=== PATIENT | female | born 1960 | race Caucasian/White ===

== ENCOUNTER 2017-01-08 11:36 | Inpatient (IN) | payer OTHER ==
[~2017-01-08] VITALS: Ht 175.3 cm; Wt 108.9 kg
[~2017-01-08 11:36] MED LIST: CLEOCIN HCL300 MG PO; LEVAQUIN750 MG PO
[2017-01-08 12:47] LABS: HEMOGLOBIN 11.3 gm/dl (12.3-15.3); RED BLOOD COUNT 3.88 M/UL (4.00-5.10); WHITE BLOOD COUNT 8.8 K/UL (4.5-11.0)
[2017-01-08 14:21] LABS: BUN/CREATININE RATIO 40 (0-10)
[2017-01-10 04:47] LABS: BUN/CREATININE RATIO 28 (0-10)
[2017-01-12 04:21] LABS: HEMOGLOBIN 9.6 gm/dl (12.3-15.3); RED BLOOD COUNT 3.31 M/UL (4.00-5.10); WHITE BLOOD COUNT 7.8 K/UL (4.5-11.0)
[2017-01-12 04:48] LABS: BUN/CREATININE RATIO 26 (0-10)
[2017-01-13 04:24] LABS: HEMOGLOBIN 10.3 gm/dl (12.3-15.3); RED BLOOD COUNT 3.55 M/UL (4.00-5.10); WHITE BLOOD COUNT 8.3 K/UL (4.5-11.0)
[2017-01-13 04:49] LABS: BUN/CREATININE RATIO 30 (0-10)
[2017-01-14 04:29] LABS: HEMOGLOBIN 9.7 gm/dl (12.3-15.3); RED BLOOD COUNT 3.31 M/UL (4.00-5.10); WHITE BLOOD COUNT 6.5 K/UL (4.5-11.0)
[2017-01-14 04:52] LABS: BUN/CREATININE RATIO 26 (0-10)
[2017-01-15 07:15] LABS: HEMOGLOBIN 9.4 gm/dl (12.3-15.3); RED BLOOD COUNT 3.29 M/UL (4.00-5.10)
[2017-01-15 07:49] LABS: BUN/CREATININE RATIO 26 (0-10)
[2017-01-16 05:07] LABS: HEMOGLOBIN 9.4 gm/dl (12.3-15.3); RED BLOOD COUNT 3.25 M/UL (4.00-5.10); WHITE BLOOD COUNT 7.4 K/UL (4.5-11.0)
[2017-01-16 05:50] LABS: BUN/CREATININE RATIO 30 (0-10)
[2017-01-17 05:29] LABS: HEMOGLOBIN 9.9 gm/dl (12.3-15.3); RED BLOOD COUNT 3.37 M/UL (4.00-5.10); WHITE BLOOD COUNT 8.8 K/UL (4.5-11.0)
[2017-01-17 05:55] LABS: BUN/CREATININE RATIO 30 (0-10)
[2017-01-19 05:04] LABS: HEMOGLOBIN 9.6 gm/dl (12.3-15.3); RED BLOOD COUNT 3.27 M/UL (4.00-5.10); WHITE BLOOD COUNT 7.1 K/UL (4.5-11.0)
[2017-01-19 05:23] LABS: BUN/CREATININE RATIO 34 (0-10)
[2017-01-22 06:49] LABS: HEMOGLOBIN 9.8 gm/dl (12.3-15.3); RED BLOOD COUNT 3.32 M/UL (4.00-5.10); WHITE BLOOD COUNT 7.9 K/UL (4.5-11.0)
[2017-01-22 07:13] LABS: BUN/CREATININE RATIO 28 (0-10)
[2017-01-27 07:35] LABS: HEMOGLOBIN 9.8 gm/dl (12.3-15.3); RED BLOOD COUNT 3.31 M/UL (4.00-5.10); WHITE BLOOD COUNT 7.6 K/UL (4.5-11.0)
[2017-01-27 07:53] LABS: BUN/CREATININE RATIO 33 (0-10)
[2017-01-29 05:45] LABS: BUN/CREATININE RATIO 28 (0-10)
[2017-01-30 05:56] LABS: HEMOGLOBIN 10.2 gm/dl (12.3-15.3); RED BLOOD COUNT 3.47 M/UL (4.00-5.10); WHITE BLOOD COUNT 6.4 K/UL (4.5-11.0)
[2017-01-30 06:19] LABS: BUN/CREATININE RATIO 36 (0-10)
[2017-01-31 06:44] LABS: BUN/CREATININE RATIO 34 (0-10)
[2017-01-31] MEDS ORDERED: JUVEN PACKET1 EACH PO (12:35)
[2017-01-31] MEDS ORDERED: WELLBUTRIN SR100 MG PO (12:36)
[2017-01-31] MEDS ORDERED: LEXAPRO TAB 1010 MG PO (12:37)
[2017-01-31] MEDS ORDERED: FERROUS SULFAT325 MG PO (12:38)
[2017-01-31] MEDS ORDERED: NOVOLOG FL100 UNIT/1 SQ (12:41)
[2017-01-31] MEDS ORDERED: LEVEMIR FL100 UNIT/1 SQ (12:43)
[2017-01-31] MEDS ORDERED: PERCOCET 5-3251 EACH PO (12:48)
[2017-01-31] MEDS ORDERED: INVANZ 1 GM VIAL1 GM IV (12:48)
[2017-01-31] MEDS ORDERED: CLONAZEPAM0.5 MG PO (12:49)
[2017-01-31] MEDS ORDERED: ZINC SULFATE220 MG PO (12:50)
[2017-01-31] MEDS ORDERED: TIZANIDINE HCL4 MG PO (12:51)
[2017-05-03] MEDS ORDERED: INVANZ 1 GM VIAL1 GM IM (16:02)
[2017-05-19] MEDS ORDERED: LEVAQUIN500 MG PO (12:54)
[2017-06-01] MEDS ORDERED: BACTROBAN CREAM15 GM EXT (01:12)
[2017-06-01] MEDS ORDERED: LANTUS SOL100 UNIT/1 SQ (01:16)
[2017-06-01] MEDS ORDERED: CLARITIN10 M2 PO (01:19)
[2017-06-01] MEDS ORDERED: PROZAC 20 MG CA20 MG PO (01:21)
[2017-06-01] MEDS ORDERED: PAMELOR 25 MG C25 MG PO (01:22)
[2017-06-01] MEDS ORDERED: VISTARIL 50 MG50 MG PO (01:22)
[2017-06-01] MEDS ORDERED: IBUPROFEN600 MG PO (01:23)
[2017-06-01] MEDS ORDERED: NEURONTIN 100100 MG PO (12:39)
[2017-06-01] MEDS ORDERED: ZYVOX 600 MG T600 MG PO (12:52)
[2017-06-01] MEDS ORDERED: INVANZ 1 GM VIAL1 GM IM (18:14)
== END 2017-01-31 18:20 | disposition home or self-care (01) | DRG 622 ==
LOC: ER1 11:36 → ZEROF 01-09 01:20 → MED SURG 4 01-09 01:20
PROVIDERS: Emergency Medicine; Family Medicine; Internal Medicine; Physician Assistant; Surgery; ADMIT Internal Medicine
PROC: 2W15X6Z Compression of Back using Pressure Dressing (ICD-10-PCS; 2017-01-12)
PROC: 0JBQ0ZZ Excision of Right Foot Subcutaneous Tissue and Fascia, Open Approach (ICD-10-PCS; principal; 2017-01-12 12:15)
PROC: 05HB33Z Insertion of Infusion Device into Right Basilic Vein, Percutaneous Approach (ICD-10-PCS; 2017-01-29)
PROC: B54MZZA Ultrasonography of Right Upper Extremity Veins, Guidance (ICD-10-PCS; 2017-01-29)
DX: E11.69 Type 2 diabetes mellitus with other specified complication (principal); L89.614 Pressure ulcer of right heel, stage 4; L89.154 Pressure ulcer of sacral region, stage 4; G82.20 Paraplegia, unspecified; F33.1 Major depressive disorder, recurrent, moderate; F11.20 Opioid dependence, uncomplicated; M86.671 Other chronic osteomyelitis, right ankle and foot; E83.42 Hypomagnesemia; E11.65 Type 2 diabetes mellitus with hyperglycemia; I95.9 Hypotension, unspecified; D50.9 Iron deficiency anemia, unspecified; G89.4 Chronic pain syndrome; R53.1 Weakness; M54.5 Low back pain; E78.5 Hyperlipidemia, unspecified; F41.9 Anxiety disorder, unspecified; Z88.5 Allergy status to narcotic agent; Z82.49 Family history of ischemic heart disease and other diseases of the circulatory system; Z82.61 Family history of arthritis; Z79.4 Long term (current) use of insulin; Z79.899 Other long term (current) drug therapy; R15.9 Full incontinence of feces; G90.4 Autonomic dysreflexia
CPT/HCPCS: 36415; 73630; 80048; 80053; 81001; 82272; 82607; 82728; 82962; 83036; 83540; 83550; 83605; 83735; 84439; 84443; 84466; 85025; 85027; 85045; 86140; 87040; 87045; 87046; 87070; 87086; 87205; 89055; 96374; 96375; 96376; 97110; 97535; 99284; A6243; J0696; J1100; J1335; J1650; J1756; J2060; J2270; J2310; J2405; J2710; J3010; J3370; J7030; J7040; J7050; J7070; J7120; Q0163

== ENCOUNTER 2017-02-06 12:48 | Inpatient (IN) | payer OTHER ==
[~2017-02-06] VITALS: Ht 175.3 cm; Wt 109.8 kg
[~2017-02-06 12:48] MED LIST changes: +CLONAZEPAM0.5 MG PO; +FERROUS SULFAT325 MG PO; +INVANZ 1 GM VIAL1 GM IV; +JUVEN PACKET1 EACH PO; +LEVEMIR FL100 UNIT/1 SQ; +LEXAPRO TAB 1010 MG PO; +NOVOLOG FL100 UNIT/1 SQ; +PERCOCET 5-3251 EACH PO; +TIZANIDINE HCL4 MG PO; +WELLBUTRIN SR100 MG PO; +ZINC SULFATE220 MG PO
[2017-02-06 15:15] LABS: HEMOGLOBIN 12.2 gm/dl (12.3-15.3); RED BLOOD COUNT 4.05 M/UL (4.00-5.10); WHITE BLOOD COUNT 10.6 K/UL (4.5-11.0)
[2017-02-06 15:35] LABS: BUN/CREATININE RATIO 30 (0-10)
[2017-02-08 09:23] LABS: HEMOGLOBIN 10.6 gm/dl (12.3-15.3)
[2017-02-08 09:28] LABS: RED BLOOD COUNT 3.63 M/UL (4.00-5.10); WHITE BLOOD COUNT 4.4 K/UL (4.5-11.0)
[2017-02-08 09:36] LABS: BUN/CREATININE RATIO 34 (0-10)
[2017-02-09 06:18] LABS: HEMOGLOBIN 10.9 gm/dl (12.3-15.3); RED BLOOD COUNT 3.69 M/UL (4.00-5.10)
[2017-02-09 06:24] LABS: WHITE BLOOD COUNT 5.9 K/UL (4.5-11.0)
[2017-02-09 06:36] LABS: BUN/CREATININE RATIO 31 (0-10)
[2017-05-03] MEDS ORDERED: INVANZ 1 GM VIAL1 GM IM (16:02)
[2017-05-19] MEDS ORDERED: LEVAQUIN500 MG PO (12:54)
[2017-06-01] MEDS ORDERED: BACTROBAN CREAM15 GM EXT (01:12)
[2017-06-01] MEDS ORDERED: LANTUS SOL100 UNIT/1 SQ (01:16)
[2017-06-01] MEDS ORDERED: CLARITIN10 M2 PO (01:19)
[2017-06-01] MEDS ORDERED: PROZAC 20 MG CA20 MG PO (01:21)
[2017-06-01] MEDS ORDERED: VISTARIL 50 MG50 MG PO (01:22)
[2017-06-01] MEDS ORDERED: PAMELOR 25 MG C25 MG PO (01:22)
[2017-06-01] MEDS ORDERED: IBUPROFEN600 MG PO (01:23)
[2017-06-01] MEDS ORDERED: NEURONTIN 100100 MG PO (12:39)
[2017-06-01] MEDS ORDERED: ZYVOX 600 MG T600 MG PO (12:52)
[2017-06-01] MEDS ORDERED: INVANZ 1 GM VIAL1 GM IM (18:14)
== END 2017-02-17 18:05 | DRG 592 ==
LOC: ER1 12:48 → M/S 18:45 → ZEROF 18:45 → M/S 23:36
PROVIDERS: Family Medicine; Physician Assistant; ADMIT Internal Medicine
DX: L89.514 Pressure ulcer of right ankle, stage 4 (principal); M86.8X7 Other osteomyelitis, ankle and foot; G82.20 Paraplegia, unspecified; L89.153 Pressure ulcer of sacral region, stage 3; E11.69 Type 2 diabetes mellitus with other specified complication; E11.65 Type 2 diabetes mellitus with hyperglycemia; D50.9 Iron deficiency anemia, unspecified; S14.106S Unspecified injury at C6 level of cervical spinal cord, sequela; S12.500S Unspecified displaced fracture of sixth cervical vertebra, sequela; I10 Essential (primary) hypertension; E78.5 Hyperlipidemia, unspecified; E83.42 Hypomagnesemia; V89.2XXS Person injured in unspecified motor-vehicle accident, traffic, sequela; G89.4 Chronic pain syndrome; M24.50 Contracture, unspecified joint; E66.01 Morbid (severe) obesity due to excess calories; R68.0 Hypothermia, not associated with low environmental temperature; L84 Corns and callosities; F41.9 Anxiety disorder, unspecified; F17.200 Nicotine dependence, unspecified, uncomplicated; Z91.19 Patient's noncompliance with other medical treatment and regimen; Z91.11 Patient's noncompliance with dietary regimen; Z68.35 Body mass index [BMI] 35.0-35.9, adult; Z79.4 Long term (current) use of insulin; Z79.891 Long term (current) use of opiate analgesic; Z79.899 Other long term (current) drug therapy; Z88.5 Allergy status to narcotic agent; Z88.0 Allergy status to penicillin; Z98.890 Other specified postprocedural states; Z82.49 Family history of ischemic heart disease and other diseases of the circulatory system; Z82.69 Family history of other diseases of the musculoskeletal system and connective tissue
CPT/HCPCS: 36415; 80048; 80053; 82962; 83735; 85025; 85027; 86140; 87040; 99284; J1335; J1650; J1817; J7050

== ENCOUNTER 2017-04-04 17:28 | Observation (INO) | payer OTHER ==
[~2017-04-04] VITALS: Ht 175.3 cm; Wt 112.7 kg
[2017-04-04 19:04] LABS: HEMOGLOBIN 11.4 gm/dl (12.3-15.3); RED BLOOD COUNT 3.89 M/UL (4.00-5.10); WHITE BLOOD COUNT 6.4 K/UL (4.5-11.0)
[2017-04-04 19:23] LABS: BUN/CREATININE RATIO 33 (0-10)
[2017-04-05] MEDS ORDERED: PERCOCET 10-321 EACH PO (01:49)
[2017-04-05] MEDS ORDERED: DURAGESIC 25 MCG1 EA TOP (01:52)
[2017-04-05] MEDS ORDERED: NORTRIPTYLINE H25 MG PO (01:53)
[2017-04-05] MEDS ORDERED: SENNA LAX8.6 MG PO (01:55)
[2017-04-05] MEDS ORDERED: MONTELUKAST SOD10 MG PO (01:55)
[2017-04-05] MEDS ORDERED: KENALOG CR 0.0215 GM TOP (01:55)
[2017-04-05] MEDS ORDERED: BACTROBAN OINT22 GM TOP (02:04)
[2017-04-05 05:58] LABS: HEMOGLOBIN 12.3 gm/dl (12.3-15.3); RED BLOOD COUNT 4.23 M/UL (4.00-5.10); WHITE BLOOD COUNT 6.5 K/UL (4.5-11.0)
[2017-04-05 06:19] LABS: BUN/CREATININE RATIO 22 (0-10)
[2017-04-06] MEDS ORDERED: ASPIRIN81 MG PO (16:08)
[2017-04-06] MEDS ORDERED: CEFUROXIME250 MG PO (16:09)
[2017-05-03] MEDS ORDERED: INVANZ 1 GM VIAL1 GM IM (16:02)
[2017-05-19] MEDS ORDERED: LEVAQUIN500 MG PO (12:54)
[2017-06-01] MEDS ORDERED: BACTROBAN CREAM15 GM EXT (01:12)
[2017-06-01] MEDS ORDERED: LANTUS SOL100 UNIT/1 SQ (01:16)
[2017-06-01] MEDS ORDERED: CLARITIN10 M2 PO (01:19)
[2017-06-01] MEDS ORDERED: PROZAC 20 MG CA20 MG PO (01:21)
[2017-06-01] MEDS ORDERED: VISTARIL 50 MG50 MG PO (01:22)
[2017-06-01] MEDS ORDERED: PAMELOR 25 MG C25 MG PO (01:22)
[2017-06-01] MEDS ORDERED: IBUPROFEN600 MG PO (01:23)
[2017-06-01] MEDS ORDERED: NEURONTIN 100100 MG PO (12:39)
[2017-06-01] MEDS ORDERED: ZYVOX 600 MG T600 MG PO (12:52)
[2017-06-01] MEDS ORDERED: INVANZ 1 GM VIAL1 GM IM (18:14)
== END 2017-04-06 18:20 | disposition home or self-care (01) ==
LOC: ER1 17:28 → ZEROF 19:52 → M/S 19:52
PROVIDERS: Emergency Medicine; ADMIT Internal Medicine
DX: G93.41 Metabolic encephalopathy (principal); N30.00 Acute cystitis without hematuria; B96.4 Proteus (mirabilis) (morganii) as the cause of diseases classified elsewhere; G82.20 Paraplegia, unspecified; E11.9 Type 2 diabetes mellitus without complications; I10 Essential (primary) hypertension; E78.5 Hyperlipidemia, unspecified; L98.429 Non-pressure chronic ulcer of back with unspecified severity; Z79.82 Long term (current) use of aspirin; Z79.891 Long term (current) use of opiate analgesic; Z79.899 Other long term (current) drug therapy; Z88.5 Allergy status to narcotic agent
CPT/HCPCS: 36415; 71010; 80048; 80053; 80307; 81001; 82550; 82553; 82962; 83605; 84484; 85025; 85027; 87040; 87077; 87086; 87186; 93005; 96365; 96372; 96375; 99285; G0378; J0360; J0696; J1650; J2310; J7030; J7050

== ENCOUNTER 2017-04-08 12:04 | Emergency (ER) | payer OTHER ==
[~2017-04-08 12:04] MED LIST changes: +ASPIRIN81 MG PO; +BACTROBAN OINT22 GM TOP; +CEFUROXIME250 MG PO; +DURAGESIC 25 MCG1 EA TOP; +KENALOG CR 0.0215 GM TOP; +MONTELUKAST SOD10 MG PO; +NORTRIPTYLINE H25 MG PO; +PERCOCET 10-321 EACH PO; +SENNA LAX8.6 MG PO
[2017-05-03] MEDS ORDERED: INVANZ 1 GM VIAL1 GM IM (16:02)
[2017-05-19] MEDS ORDERED: LEVAQUIN500 MG PO (12:54)
[2017-06-01] MEDS ORDERED: BACTROBAN CREAM15 GM EXT (01:12)
[2017-06-01] MEDS ORDERED: LANTUS SOL100 UNIT/1 SQ (01:16)
[2017-06-01] MEDS ORDERED: CLARITIN10 M2 PO (01:19)
[2017-06-01] MEDS ORDERED: PROZAC 20 MG CA20 MG PO (01:21)
[2017-06-01] MEDS ORDERED: PAMELOR 25 MG C25 MG PO (01:22)
[2017-06-01] MEDS ORDERED: VISTARIL 50 MG50 MG PO (01:22)
[2017-06-01] MEDS ORDERED: IBUPROFEN600 MG PO (01:23)
[2017-06-01] MEDS ORDERED: NEURONTIN 100100 MG PO (12:39)
[2017-06-01] MEDS ORDERED: ZYVOX 600 MG T600 MG PO (12:52)
[2017-06-01] MEDS ORDERED: INVANZ 1 GM VIAL1 GM IM (18:14)
== END 2017-04-08 13:35 | disposition home or self-care (01) ==
LOC: ER1 12:04
DX: T83.021A Displacement of indwelling urethral catheter, initial encounter (principal); G82.20 Paraplegia, unspecified; E11.9 Type 2 diabetes mellitus without complications; Z88.0 Allergy status to penicillin; Z88.5 Allergy status to narcotic agent; X58.XXXA Exposure to other specified factors, initial encounter
CPT/HCPCS: 51702; 99283

== ENCOUNTER → 2017-05-04 | Outpatient (CLI) | payer OTHER ==
[~2017-05-04] VITALS: Ht 175.3 cm; Wt 112.5 kg
[~2017-05-04] MED LIST changes: +BACTROBAN CREAM15 GM EXT; +CLARITIN10 M2 PO; +IBUPROFEN600 MG PO; +INVANZ 1 GM VIAL1 GM IM; +LANTUS SOL100 UNIT/1 SQ; +LEVAQUIN500 MG PO; +NEURONTIN 100100 MG PO; +PAMELOR 25 MG C25 MG PO; +PROZAC 20 MG CA20 MG PO; +VISTARIL 50 MG50 MG PO; +ZYVOX 600 MG T600 MG PO
== END ==
LOC: OPSV 14:35
DX: N30.00 Acute cystitis without hematuria (principal); B96.20 Unspecified Escherichia coli [E. coli] as the cause of diseases classified elsewhere
CPT/HCPCS: 96372; J1335

== ENCOUNTER → 2017-05-06 | Outpatient (CLI) | payer OTHER ==
[~2017-05-06] VITALS: Ht 175.3 cm; Wt 112.5 kg
== END ==
LOC: OPSV 05-05 14:00
DX: N30.90 Cystitis, unspecified without hematuria (principal)
CPT/HCPCS: 96372; J1335

== ENCOUNTER 2021-03-05 13:34 | Emergency (ER) | payer OTHER ==
[~2021-03-05 13:34] MED LIST changes: +ADMELOG SO100 UNIT/1 SC; +ALBUTEROL1.25 MG/3 INH; +ALEVE220 MG PO; +APIDRA SOL100 UNIT/1 SQ; +ASPIR 8181 MG PO; +ASPIR-LOW81 MG PO; +ATIVAN 1MG TABLE1 MG PO; +ATIVAN1 MG PO; +BACITRACIN OINT30 GM TOP; +BACTRIM DS TAB1 EACH PO; +BASAGLAR K100 UNIT/1 SQ; +BASAGLAR SQ; +BENADRYL 50MG C50 MG PO; +CEFDINIR300 MG PO; +CEFPODOXIME PR200 MG PO; +CEFUROXIME500 MG PO; +CHRONULAC20 GM/30 M PO; +CIPRO250 MG PO; +CIPRO500 MG PO; +COREG 12.5MG12.5 MG PO; +DIFLUCAN150 MG PO; +DIFLUCAN200 MG PO; +DOCUSATE SODIU100 MG PO; +DOXYCYCLINE HY100 MG PO; +ENULOSE10 GM/15 M PO; +FENTANYL TOP; +FLONASE 0.05% N16 GM; +FUROSEMIDE40 MG PO; +GABAPENTIN300 MG PO; +GAVILAX8.5 GM PO; +GLUCOPHAGE1000 MG PO; +IPRAT-ALBUT 0.5-3 ML NEB; +KEFLEX500 MG PO; +KEPPRA 500 MG500 MG PO; +KLONOPIN1 MG PO; +KLOR-CON M2020 MEQ PO; +LANTUS INS100 UTS/M1 SC; -LANTUS SOL100 UNIT/1 SQ; +LANTUS100 UNIT/1 SC; +LANTUS100 UNIT/1 SQ; +LASIX20 MG PO; +LEXAPRO10 MG PO; +LINZESS145 MCG PO; +LIORESAL TAB 1010 MG PO; +LIPITOR TAB 1010 MG PO; +LODINE CAP 300300 MG PO; +LORAZEPAM0.5 MG PO; +LYRICA100 MG PO; +LYRICA75 MG PO; +MACROBID 100 M100 MG PO; +MAGNESIUM400 M2 PO; +METOPROLOL TART25 MG PO; +MIRALAX17 GM PO; +MYCOSTATIN POWD15 GM TOP; +NEURONTIN 300300 MG PO; +NEURONTIN 400400 MG PO; +NEURONTIN800 MG PO; +NORCO 7.5-3251 EACH PO; +NOVOLOG 10100 UNITS/ INJ; +OMNICEF 300 MG300 MG PO; +ONDANSETRON ODT4 MG PO; +OXYCODONE HCL10 MG PO; +OXYCONTIN10 MG PO; +PAIN RELIEVER650 MG PO; +PAXIL40 MG PO; -PERCOCET 10-321 EACH PO; +PHENERGAN 12.12.5 M1 PO; +PROCTOFOAM-HC 110 G1 PR; +PROTONIX40 MG PO; +PROZAC20 MG PO; +SANTYL OINT 3030 GM TP; +SENNA8.6 MG PO; +SULFAMETHOXAZO1 EACH PO; +THERAHONEY GEL; +TOPIRAMATE25 MG PO; +UREX1 GM GT; +UREX1 GM PO; +VALIUM 2 MG TAB2 MG PO; +VENTOLIN HFA 66.7 GM INH; +VITAMIN C500 M1 PO; +VITAMIN D250000 UNIT PO; +WELLBUTRIN SR150 M1 PO; +WELLBUTRIN XL150 MG PO; +ZANAFLEX 4 MG TA4 MG PO; +ZANAFLEX4 MG PO; +ZANTAC 150 MG150 MG PO; +ZITHROMAX250 MG PO; +ZOFRAN ODT 4 MG4 MG PO; +ZOFRAN ODT 4 MG4 MG SL; +ZOFRAN4 MG PO; +ZOLOFT50 MG PO; +ZYVOX600 MG PO; +[UNRECOGNIZED DRUG - REMARK] INH
[2021-03-05 15:01] LABS: BUN/CREATININE RATIO 26 (0-10)
[2021-03-05 15:04] LABS: RED BLOOD COUNT 4.86 M/UL (4.00-5.10); WHITE BLOOD COUNT 9.3 K/UL (4.5-11.0)
[2021-03-05] MEDS ORDERED: DIFLUCAN150 MG PO (18:34)
[2021-03-05] MEDS ORDERED: ASCORBIC ACID500 MG PO (18:34)
== END 2021-03-05 20:09 | disposition home or self-care (01) ==
LOC: ER1 13:34
PROVIDERS: Family Medicine
DX: R11.2 Nausea with vomiting, unspecified (principal); R19.7 Diarrhea, unspecified
CPT/HCPCS: 80053; 81001; 83690; 85025; 93005; 96374; 99285; J2550; J7030; Q9967

== ENCOUNTER 2021-03-12 17:10 | Inpatient (IN) | payer OTHER ==
[~2021-03-12] VITALS: Ht 175.3 cm; Wt 104.2 kg
[~2021-03-12 17:10] MED LIST changes: +ASCORBIC ACID500 MG PO
[2021-03-12 18:52] LABS: HEMOGLOBIN 13.9 gm/dl (12.3-15.3); RED BLOOD COUNT 4.61 M/UL (4.00-5.10); WHITE BLOOD COUNT 9.3 K/UL (4.5-11.0)
[2021-03-12 19:15] LABS: BUN/CREATININE RATIO 31 (0-10)
[2021-03-13] MEDS ORDERED: LASIX20 MG PO (00:01)
[2021-03-13 03:17] LABS: HEMOGLOBIN 13.1 gm/dl (12.3-15.3); RED BLOOD COUNT 4.36 M/UL (4.00-5.10); WHITE BLOOD COUNT 7.5 K/UL (4.5-11.0)
[2021-03-13 03:49] LABS: BUN/CREATININE RATIO 31 (0-10)
[2021-03-13] MEDS ORDERED: PAXIL40 MG PO (10:08)
[2021-03-13] MEDS ORDERED: MACROBID 100 M100 MG PO (10:09)
[2021-03-13] MEDS ORDERED: CONSTULOSE10 GM/15 M PO (10:10)
[2021-03-14] MEDS ORDERED: MACROBID 100 M100 MG PO (10:39)
== END 2021-03-14 14:47 | disposition home or self-care (01) | DRG 917 ==
LOC: ER1 17:10 → CDU 21:15 → PROG CARE 21:15 → M/S 03-14 04:07
PROVIDERS: Emergency Medicine; Internal Medicine; ADMIT Internal Medicine
PROC: 0BH17EZ Insertion of Endotracheal Airway into Trachea, Via Natural or Artificial Opening (ICD-10-PCS; 2021-03-12)
PROC: 5A1935Z Respiratory Ventilation, Less than 24 Consecutive Hours (ICD-10-PCS; 2021-03-12)
PROC: B24BZZ4 Ultrasonography of Heart with Aorta, Transesophageal (ICD-10-PCS; principal; 2021-03-13)
DX: T42.4X2A Poisoning by benzodiazepines, intentional self-harm, initial encounter (principal); L89.153 Pressure ulcer of sacral region, stage 3; J96.01 Acute respiratory failure with hypoxia; G82.20 Paraplegia, unspecified; I50.32 Chronic diastolic (congestive) heart failure; N30.00 Acute cystitis without hematuria; Z20.822 Contact with and (suspected) exposure to COVID-19; Z66 Do not resuscitate; L89.322 Pressure ulcer of left buttock, stage 2; F41.9 Anxiety disorder, unspecified; E11.65 Type 2 diabetes mellitus with hyperglycemia; F41.0 Panic disorder [episodic paroxysmal anxiety]; E78.5 Hyperlipidemia, unspecified; J30.9 Allergic rhinitis, unspecified; I10 Essential (primary) hypertension; R53.81 Other malaise; N31.9 Neuromuscular dysfunction of bladder, unspecified; L89.610 Pressure ulcer of right heel, unstageable; Z87.440 Personal history of urinary (tract) infections; Z88.6 Allergy status to analgesic agent; Z88.1 Allergy status to other antibiotic agents; Z88.0 Allergy status to penicillin; Z88.8 Allergy status to other drugs, medicaments and biological substances; Z82.61 Family history of arthritis; Z82.49 Family history of ischemic heart disease and other diseases of the circulatory system; Z74.01 Bed confinement status; Y92.009 Unspecified place in unspecified non-institutional (private) residence as the place of occurrence of the external cause
CPT/HCPCS: ECHO; 36415; 36600; 70450; 71045; 80053; 80307; 81001; 82550; 82553; 82803; 82962; 83605; 83735; 83874; 83880; 84484; 85025; 85610; 85730; 87040; 87086; 93005; 93306; 94002; 96374; 99285; G0480; J0692; J1650; J2250; U0002

== ENCOUNTER 2021-06-11 22:59 | Inpatient (IN) | payer OTHER ==
[~2021-06-11] VITALS: Ht 167.6 cm; Wt 97.5 kg
[~2021-06-11 22:59] MED LIST changes: -ADMELOG SO100 UNIT/1 SC; +CONSTULOSE10 GM/15 M PO; -GLUCOPHAGE1000 MG PO; -MONTELUKAST SOD10 MG PO; -PHENERGAN 12.12.5 M1 PO; -ZANAFLEX4 MG PO
[2021-06-11 23:53] LABS: HEMOGLOBIN 13.8 gm/dl (12.3-15.3); RED BLOOD COUNT 4.61 M/UL (4.00-5.10)
[2021-06-12] MEDS ORDERED: MONTELUKAST SOD10 MG PO (01:55)
[2021-06-12] MEDS ORDERED: ALEVE220 MG PO (09:50)
[2021-06-12] MEDS ORDERED: ADMELOG SO100 UNIT/1 SQ (12:37)
[2021-06-12] MEDS ORDERED: OXYCODONE HCL10 MG PO (14:06)
[2021-06-12] MEDS ORDERED: ZANAFLEX4 MG PO (16:06)
[2021-06-12] MEDS ORDERED: CLARITIN10 MG PO (16:34)
[2021-06-12] MEDS ORDERED: PHENERGAN 12.12.5 M1 PO (16:34)
[2021-06-12 16:36] LABS: BUN/CREATININE RATIO 34 (0-10)
[2021-06-12] MEDS ORDERED: METFORMIN HCL1000 MG PO (17:15)
[2021-06-12 21:02] LABS: BUN/CREATININE RATIO 33 (0-10)
[2021-06-12] MEDS ORDERED: PREGABALIN150 MG PO (22:05)
[2021-06-13 05:22] LABS: HEMOGLOBIN 13.2 gm/dl (12.3-15.3); RED BLOOD COUNT 4.49 M/UL (4.00-5.10); WHITE BLOOD COUNT 4.7 K/UL (4.5-11.0)
[2021-06-13 05:40] LABS: BUN/CREATININE RATIO 37 (0-10)
[2021-06-13 10:18] LABS: BUN/CREATININE RATIO 37 (0-10)
[2021-06-13 13:51] LABS: BUN/CREATININE RATIO 41 (0-10)
[2021-06-13 17:35] LABS: BUN/CREATININE RATIO 38 (0-10)
[2021-06-13 20:49] LABS: BUN/CREATININE RATIO 44 (0-10)
[2021-06-14 05:55] LABS: BUN/CREATININE RATIO 44 (0-10)
[2021-06-14 09:42] LABS: BUN/CREATININE RATIO 47 (0-10)
[2021-06-14 16:08] LABS: BUN/CREATININE RATIO 49 (0-10)
[2021-06-15 05:40] LABS: HEMOGLOBIN 11.5 gm/dl (12.3-15.3); RED BLOOD COUNT 4.15 M/UL (4.00-5.10)
[2021-06-15 06:00] LABS: BUN/CREATININE RATIO 47 (0-10)
[2021-06-16 05:58] LABS: WHITE BLOOD COUNT 3.5 K/UL (4.5-11.0)
[2021-06-16 06:12] LABS: BUN/CREATININE RATIO 53 (0-10)
[2021-06-17 05:23] LABS: RED BLOOD COUNT 3.95 M/UL (4.00-5.10); WHITE BLOOD COUNT 4.2 K/UL (4.5-11.0)
[2021-06-17 05:49] LABS: BUN/CREATININE RATIO 50 (0-10)
[2021-06-18 05:27] LABS: HEMOGLOBIN 11.6 gm/dl (12.3-15.3); RED BLOOD COUNT 4.03 M/UL (4.00-5.10)
[2021-06-18 05:52] LABS: BUN/CREATININE RATIO 48 (0-10)
[2021-06-19 05:31] LABS: HEMOGLOBIN 11.5 gm/dl (12.3-15.3); RED BLOOD COUNT 3.95 M/UL (4.00-5.10); WHITE BLOOD COUNT 4.1 K/UL (4.5-11.0)
[2021-06-19 05:55] LABS: BUN/CREATININE RATIO 49 (0-10)
[2021-06-20 04:35] LABS: HEMOGLOBIN 11.9 gm/dl (12.3-15.3); RED BLOOD COUNT 4.09 M/UL (4.00-5.10)
[2021-06-20 04:39] LABS: WHITE BLOOD COUNT 5.7 K/UL (4.5-11.0)
[2021-06-20 05:04] LABS: BUN/CREATININE RATIO 61 (0-10)
[2021-06-21 04:58] LABS: HEMOGLOBIN 11.4 gm/dl (12.3-15.3); RED BLOOD COUNT 3.89 M/UL (4.00-5.10); WHITE BLOOD COUNT 5.3 K/UL (4.5-11.0)
[2021-06-21 05:29] LABS: BUN/CREATININE RATIO 56 (0-10)
[2021-06-22 03:01] LABS: HEMOGLOBIN 11.2 gm/dl (12.3-15.3); RED BLOOD COUNT 3.92 M/UL (4.00-5.10); WHITE BLOOD COUNT 6.2 K/UL (4.5-11.0)
[2021-06-22 03:06] LABS: BUN/CREATININE RATIO 61 (0-10)
[2021-06-23 04:03] LABS: HEMOGLOBIN 10.8 gm/dl (12.3-15.3); RED BLOOD COUNT 3.67 M/UL (4.00-5.10); WHITE BLOOD COUNT 5.5 K/UL (4.5-11.0)
[2021-06-23 04:22] LABS: BUN/CREATININE RATIO 66 (0-10)
--- NOTE | 2021-06-23 11:13 | NUR ---
CALLED MD TOBIAS THIS AM. PATIENT IS REFUSING TO WEAR HER BIPAP. SHE PULLS IT OFF. STATES SHE WANTS TO EAT. SHE REFUSES TO BE INTUBATED. MD DODD.
[2021-06-24 09:01] LABS: HEMOGLOBIN 10.8 gm/dl (12.3-15.3); RED BLOOD COUNT 3.72 M/UL (4.00-5.10)
[2021-06-24 09:02] LABS: WHITE BLOOD COUNT 7.1 K/UL (4.5-11.0)
[2021-06-24 10:12] LABS: BUN/CREATININE RATIO 75 (0-10)
[2021-06-24 23:22] LABS: BUN/CREATININE RATIO 70 (0-10)
--- NOTE | 2021-06-24 23:30 | NUR ---
TERESA RN, HEARD BIPAP ALARMING. CHECKED PATIENT. SHE WAS NOTED TO HAVE HER MASK OFF AND OXYGEN SATURATION IN THE 40'S. PATIENT OPENED EYES TO VERBAL CUES. BIPAP WAS PLACED BACK ON PATIENT AND SHE OXYGEN SATURATION WAS REMAINING IN THE 70'S. 2122 [facility] CALLED [address]123 DR AGUIRRE CALLED TO COME TO BEDSIDE, MADE AWARE PATIENT IS COVID AND THAT SHE IS STAYING IN THE 70% ON BIPAP OF 100% FiO2. DR AGUIRRE ORDERED A STAT CHEST XRAY AND THEN ORDERED 40 MG LASIX IV. PATIENT MAINTAINED 80% SATURATION WHILE ON THE BIPAP. DR AGUIRRE DECIDED TO INTUBATE AT 2139. I CALLED DOWN TO ER AT [address] LIGHT TO COME TO BEDSIDE TO INTUBATE. 2151 DR LIGHT AT BEDSIDE TO INTUBATE. ETOMIDATE 20 MG IV WAS GIVEN AT 2152 AND SUCCINATE 100 MG IV WAS GIVEN AT 2152. AT 2155 PATIENT OXYGEN SATURATION 80% AT THE START OF INTUBATION. TUBE WAS PLACED 22 AT THE LIP AND THEN PULLED BACK TO 21 AT THE LIP AT 2157. A STAT CHEST XRAY WAS ORDERED TO VERIFY PLACEMENT OF ET TUBE. XRAY WAS DONE AT 2203. PROPOFOL DRIP STARTED AT 2206. PATIENT THEN TRANSFERRED TO ICU TO ROOM 2125. FAMILY, JEM, WAS CALLED TO MAKE AWARE OF PATIENT'S CONDITION.
--- NOTE | 2021-06-24 23:41 | NUR ---
PATIENTS CODE STATUS IS CURRENTLY FULL CODE AND DR AGUIRRE ASKED PATIENT ABOUT INTUBATION PRIOR. SHE AGREED TO INTUBATION.
[2021-06-25 04:12] LABS: RED BLOOD COUNT 4.11 M/UL (4.00-5.10); WHITE BLOOD COUNT 22.3 K/UL (4.5-11.0)
[2021-06-25 04:37] LABS: BUN/CREATININE RATIO 65 (0-10)
[2021-06-26 05:17] LABS: HEMOGLOBIN 10.2 gm/dl (12.3-15.3)
[2021-06-26 05:19] LABS: RED BLOOD COUNT 3.5 M/UL (4.00-5.10)
[2021-06-26 05:41] LABS: BUN/CREATININE RATIO 57 (0-10)
[2021-06-27 05:54] LABS: BUN/CREATININE RATIO 58 (0-10)
[2021-06-29 05:40] LABS: HEMOGLOBIN 9.7 gm/dl (12.3-15.3); RED BLOOD COUNT 3.39 M/UL (4.00-5.10); WHITE BLOOD COUNT 9.2 K/UL (4.5-11.0)
[2021-06-29 05:51] LABS: BUN/CREATININE RATIO 76 (0-10)
[2021-06-30 05:58] LABS: HEMOGLOBIN 9.7 gm/dl (12.3-15.3); RED BLOOD COUNT 3.35 M/UL (4.00-5.10); WHITE BLOOD COUNT 10.6 K/UL (4.5-11.0)
[2021-06-30 06:23] LABS: BUN/CREATININE RATIO 99 (0-10)
[2021-07-01 05:13] LABS: HEMOGLOBIN 9.7 gm/dl (12.3-15.3); RED BLOOD COUNT 3.34 M/UL (4.00-5.10); WHITE BLOOD COUNT 11.4 K/UL (4.5-11.0)
[2021-07-01 05:47] LABS: BUN/CREATININE RATIO 99 (0-10)
[2021-07-02 08:15] LABS: HEMOGLOBIN 9.1 gm/dl (12.3-15.3); RED BLOOD COUNT 3.14 M/UL (4.00-5.10)
[2021-07-02 08:39] LABS: BUN/CREATININE RATIO 115 (0-10)
== END 2021-07-02 21:18 | disposition expired | DRG 870 ==
LOC: ER1 22:59 → 2 EAST 06-12 00:49 → CDU 06-12 00:49 → CCU 06-12 00:49 → PROG CARE 06-12 17:18 → 2 EAST 06-13 19:40 → PROG CARE 06-21 19:43 → CCU 06-24 22:11
PROVIDERS: Emergency Medicine; Internal Medicine; Internal Medicine Pulmonary Disease; ADMIT Internal Medicine
PROC: B24BZZZ Ultrasonography of Heart with Aorta (ICD-10-PCS; 2021-06-13)
PROC: 5A1955Z Respiratory Ventilation, Greater than 96 Consecutive Hours (ICD-10-PCS; principal; 2021-06-24)
PROC: 0BH18EZ Insertion of Endotracheal Airway into Trachea, Via Natural or Artificial Opening Endoscopic (ICD-10-PCS; 2021-06-24)
PROC: 3E033XZ Introduction of Vasopressor into Peripheral Vein, Percutaneous Approach (ICD-10-PCS; 2021-06-24)
PROC: XW033E5 Introduction of Remdesivir Anti-infective into Peripheral Vein, Percutaneous Approach, New Technology Group 5 (ICD-10-PCS; 2021-06-24)
PROC: 3E0333Z Introduction of Anti-inflammatory into Peripheral Vein, Percutaneous Approach (ICD-10-PCS; 2021-06-24)
PROC: 05H533Z Insertion of Infusion Device into Right Subclavian Vein, Percutaneous Approach (ICD-10-PCS; 2021-06-25)
PROC: B546ZZA Ultrasonography of Right Subclavian Vein, Guidance (ICD-10-PCS; 2021-06-25)
PROC: 8E0ZXY6 Isolation (ICD-10-PCS; 2021-07-02)
DX: A41.02 Sepsis due to Methicillin resistant Staphylococcus aureus (principal); U07.1 COVID-19; E11.10 Type 2 diabetes mellitus with ketoacidosis without coma; J12.82 Pneumonia due to coronavirus disease 2019; J80 Acute respiratory distress syndrome; G93.41 Metabolic encephalopathy; R65.21 Severe sepsis with septic shock; J15.9 Unspecified bacterial pneumonia; G82.50 Quadriplegia, unspecified; E87.2 Acidosis; N17.9 Acute kidney failure, unspecified; I50.32 Chronic diastolic (congestive) heart failure; F11.20 Opioid dependence, uncomplicated; I13.0 Hypertensive heart and chronic kidney disease with heart failure and stage 1 through stage 4 chronic kidney disease, or unspecified chronic kidney disease; A41.89 Other specified sepsis; Z51.5 Encounter for palliative care; L89.320 Pressure ulcer of left buttock, unstageable; D69.6 Thrombocytopenia, unspecified; L89.150 Pressure ulcer of sacral region, unstageable; G40.909 Epilepsy, unspecified, not intractable, without status epilepticus; E78.5 Hyperlipidemia, unspecified; I07.1 Rheumatic tricuspid insufficiency; F41.9 Anxiety disorder, unspecified; E11.65 Type 2 diabetes mellitus with hyperglycemia; E11.22 Type 2 diabetes mellitus with diabetic chronic kidney disease; G89.29 Other chronic pain; I48.91 Unspecified atrial fibrillation; N31.9 Neuromuscular dysfunction of bladder, unspecified; E66.01 Morbid (severe) obesity due to excess calories; Z88.0 Allergy status to penicillin; Z88.1 Allergy status to other antibiotic agents; Z88.8 Allergy status to other drugs, medicaments and biological substances; Z79.52 Long term (current) use of systemic steroids
CPT/HCPCS: ECHO; 0240U; 31500; 36415; 36600; 71045; 71275; 80048; 80053; 80202; 81001; 82009; 82550; 82553; 82728; 82803; 82962; 83605; 83735; 83880; 84100; 84439; 84443; 84484; 85025; 85027; 85379; 85610; 85652; 85730; 86140; 86900; 86901; 86927; 87040; 87070; 87077; 87081; 87086; 87186; 87205; 92610; 93005; 93306; 93970; 94002; 94003; 94640; 94660; 94664; 94760; 99285; A6212; C1751; C9113; J0456; J1100; J1120; J1170; J1205; J1450; J1650; J1940; J2020; J2185; J2250; J2405; J2704; J3010; J3370; J3475; J7030; J7040; J7070; Q9967